=== PATIENT | male | born 1975 | race American Indian/Alaskan Native ===

== ENCOUNTER 2018-09-02 18:56 | Emergency (ER) | payer OTHER ==
[2018-09-02 19:08] VITALS: BP 130/88; PULSE 74; RESP 16; TEMP 98.6; O2SAT 98
[2018-09-02] MEDS ORDERED: Tetracaine 0.5% Ophth (OR ONLY) ONE (19:24)
[2018-09-02] MEDS ORDERED: PROPARACAINE/FLUORESCEIN SOD 100 DROP/5 ML BOTTLE ONE (19:25)
--- NOTE | 2018-09-02 19:52 | C.PDOC ---
History Of Present Illness 42 y/o male was seen last month at [facility] and diagnosed with glaucoma. Patient was given brimonidine and dorzolamide. States he took it for 10 days and symptoms went away. Patient has not followed up since. Today, patient states he woke up with right eye pain and redness. Denies injury, discharge, wearing contacts, fever, chills, nausea, vomiting, abdominal pain, nasal congestion, or cough. Time Seen by Provider: 09/02/18 19:06 Chief Complaint (Nursing): Eye Problem History Per: Patient History/Exam Limitations: no limitations Onset/Duration Of Symptoms: Hrs Current Symptoms Are (Timing): Still Present Past Medical History Reviewed: Historical Data, Nursing Documentation, Vital Signs Vital Signs: Last Vital Signs Temp 98.6 F 09/02/18 19:05 Pulse 74 09/02/18 19:05 Resp 16 09/02/18 19:05 BP 130/88 09/02/18 19:05 Pulse Ox 98 09/02/18 19:05 Family History: States: No Known Family Hx - Social History Hx Alcohol Use: No Hx Substance Use: No - Immunization History Hx Tetanus Toxoid Vaccination: No Hx Influenza Vaccination: No Hx Pneumococcal Vaccination: No Review Of Systems Constitutional: Negative for: Fever, Chills, Weakness Eyes: Positive for: Pain (R eye), Redness. Negative for: Other (scleral icterus; discharge) ENT: Negative for: Nose Congestion, Mouth Swelling Cardiovascular: Negative for: Light Headedness Respiratory: Negative for: Cough Gastrointestinal: Negative for: Nausea, Vomiting, Abdominal Pain Genitourinary: Negative for: Dysuria Musculoskeletal: Negative for: Neck Pain Skin: Negative for: Rash Neurological: Negative for: Altered Mental Status Physical Exam - Physical Exam Appears: Non-toxic, No Acute Distress Skin: Warm, Dry, No Rash Head: Atraumatic, Normacephalic Eye(s): bilateral: PERRL, EOMI (with no pain), right: Photophobia, Other (Redness around iris, questionable ciliary flush, IOP 54-55) Nose: Normal Oral Mucosa: Moist Throat: Normal (no swelling), No Exudate Neck: Normal ROM, Supple Chest: Symmetrical Respiratory: No Accessory Muscle Use, Other (Normal inspiratory effort) Gastrointestinal/Abdominal: Soft, No Distention Extremity: Bilateral: Atraumatic, Normal Color And Temperature, Normal ROM Neurological/Psych: Oriented x3, Normal Speech Gait: Steady ED Course And Treatment O2 Sat by Pulse Oximetry: 98 (RA) Pulse Ox Interpretation: Normal Medical Decision Making Medical Decision Making: this patient is not in severe pain depsite the tonopen reading of 54/55. Dr. Batres consulted and he does not believe this pressure reading is accurate and states this patient can be seen in the office at 930 am after being prescribed ophthamic drops for glaucoma. Disposition Discussed With DrTraci: Stella Thao Counseled Patient/Family Regarding: Diagnosis, Need For Followup - Disposition Disposition: HOME/ ROUTINE Disposition Time: 19:54 Condition: STABLE Additional Instructions: MALKA BEDOLLA, thank you for letting us take care of you today. Your provider was ED Physician Dr. Garcia and DOROTHY Pozo you were treated for EYE PAIN. The emergency medical care you received today was directed at your acute symptoms. If you were prescribed any medication, please fill it and take as directed. It may take several days for your symptoms to resolve. Return to the Emergency Department if your symptoms worsen, do not improve, or if you have any other problems. Please contact your doctor or call one of the physicians/clinics you have been referred to that are listed on the Patient Visit Information form that is included in your discharge packet. Bring any paperwork you were given at discharge with you along with any medications you are taking to your follow up visit. Our treatment cannot replace ongoing medical care by a primary care provider outside of the emergency department. Thank you for allowing the [facility] team to be part of your care today. Prescriptions: RX: Brimonidine 0.2% [Alphagan 0.2% Opht] 2 drop RIGHTEYE BID #1 bottle RX: Dorzolamide 2% [Trusopt] 5 ml RIGHTEYE BID #1 bottle Instructions: Angle-Closure Glaucoma Forms: [employer] (Spanish), General Discharge Instructions - Clinical Impression Clinical Impression: Glaucoma (increased eye pressure) - PA / CONTENT STRATEGIST / Resident Statement MD/DO has reviewed & agrees with the documentation as recorded. - Scribe Statement The provider has reviewed the documentation as recorded by the Scribe Suzanne Perez All medical record entries made by the Scribe were at my direction and personally dictated by me. I have reviewed the chart and agree that the record accurately reflects my personal performance of the history, physical exam, medical decision making, and the department course for this patient. I have also personally directed, reviewed, and agree with the discharge instructions and disposition.
== END 2018-09-02 20:19 | disposition home or self-care (01) ==
LOC: C.ER 18:56
DX: H40.9 Unspecified glaucoma (principal)

== ENCOUNTER 2018-12-24 11:47 | Outpatient (CLI) | payer OTHER | END 2018-12-24 11:48 | disposition home or self-care (01) | LOC: C.PAT 11:47 ==

== ENCOUNTER 2018-12-27 09:52 | Day surgery (SDC) | payer OTHER ==
[2018-12-24 12:07] VITALS: BMI 30.7
[~2018-12-27 09:52] MED LIST: Bupivacaine-Epi 0.5%-1:200,000 PF Inj ONE; ceFAZolin 1 gm in NS 2 GM/200 ML BAG IVPB ONE
[2018-12-27] MEDS ORDERED: Propofol 10 mg/ml Inj (20 ML) ONE (12:00)
[2018-12-27] MEDS ORDERED: Midazolam 2 MG/2 ML VIAL ONE (12:00)
[2018-12-27] MEDS ORDERED: oxyCODONE 5 mg Immediate Release Tab PO ONE (12:58)
--- NOTE | 2018-12-27 13:02 | PCM.SURG1 ---
Surgeon's Initial Post Op Note - Surgeon's Notes Surgeon: Dr. Domingo [employer] Faculty Member: Merchant PARSONS Type of Anesthesia: Local Pre-Operative Diagnosis: Left Upper Extremity mass, Right Testicular hydrocele Operative Findings: Right hydrocele, left upper extremity lipoma Post-Operative Diagnosis: 1. Left upper extremity Lipoma. 2. Right Testicular Hydrocele Operation Performed: 1. Excision of Left Upper extremity Lipoma excision. 2. Right Testicular Hydrocelectomy Specimen/Specimens Removed: 1. Left upper extremity Mass. 2. Testicular sac Estimated Blood Loss: EBL {In ML}: 10 Drains Used: Dawna (Right Testicle) Date of Surgery/Procedure: 12/27/18 Time of Surgery/Procedure: 13:01 (Dictation#: [id number])
[2018-12-27] MEDS ORDERED: Lidocaine/Epinephrine 1% 1:100000 10 ML IJ ONE (13:04)
[2018-12-27] MEDS: HYDROmorphone 0.5 mg/0.5 ml ISec IVP PRN ×2 (13:17→13:32)
[2018-12-27 13:35] VITALS: O2SAT 100
[2018-12-27 14:25] VITALS: BP 113/69; PULSE 70; RESP 18; TEMP 97
--- NOTE | 2018-12-28 00:39 | OP ---
PROCEDURE DATE: 12/27/2018 SURGEON: Indra Domingo MD. PACKAGING ENGINEER: Eliot Dang DO, PGY-2. ANESTHESIA: General LMA. PREOPERATIVE DIAGNOSES: 1. Left upper extremity mass. 2. Right testicular hydrocele. POSTOPERATIVE DIAGNOSES: 1. Left upper extremity lipoma. 2. Right testicular hydrocele. PROCEDURES: 1. Excision of left upper extremity lipoma. 2. Right testicular hydrocelectomy. ESTIMATED BLOOD LOSS: 10 mL. SPECIMENS: 1. Left upper extremity lipoma. 2. Right testicular sac. INDICATIONS FOR SURGERY: This is a 43-year-old male with the history of right testicular swelling and presumed to have a hydrocele which continued to irritate and bother him. Also, he noted a left upper extremity mass at the palmar portion of the forearm at the distal third. Subsequently, he wanted this to be removed due to pain and irritation. DESCRIPTION OF THE PROCEDURE: The patient was brought into the operating room and placed in supine position. The patient's anesthesia was induced and LMA was placed. Placement confirmed with end-tidal CO2 and hooked up on EKG monitors and O2 saturation. The patient was prepped and draped in the usual sterile fashion along the testicles and penis as well as the left upper extremity. A time-out was taken confirming correct patient, procedure, and laterality. Everyone agreed in the room. Starting off with the left upper extremity, a single incision was made directly over the mass using combination of sharp and blunt dissection, mass was elevated and determined to be lipoma. Using Metzenbaum scissors, we were able to completely remove the entirety of the mass. The skin was then approximated in running subcuticular manner with 4-0 Vicryl. Pressure was placed. Appropriate hemostasis was achieved using electrocautery. Dermabond was placed as a sterile dressing. At this time, both scrubbed and redressed and regowned in a sterile fashion for the right testicle as prepped and draped. A single longitudinal incision was made over the right scrotum and dissection was made down to the hydrocele sac. A #10 blade was then used to make a single stab incision to drain the hydrocele. Approximately, 30 mL were drained. At this time, the sac was extended using sharp scissors and then retracted posteriorly exposing the right testicle, using a running chromic suture in a locking manner to close the defect. At this time, a single stab incision was made to place a Dawna drain at the inferior portion of the scrotum. The remainder of the scrotum was then closed with 3-0 chromic in an interrupted fashion in a vertical mattress suture. The Dawna was then secured and placed on the inferior aspect of the scrotum. All hemostasis was appropriately achieved using electrocautery. A pressure dressing was applied. Scrotal support was then placed. The patient was awoken and extubated and taken to postanesthesia care unit in stable condition. All counts were correct at the end of the case. Dr. Domingo was present and participated in all aspects of this case. Eliot Dang DO Indra Domingo MD
== END 2018-12-27 17:42 | disposition home or self-care (01) ==
LOC: C.SDS 09:52
PROVIDERS: ATTEND Surgery
DX: N43.0 Encysted hydrocele (principal); D17.22 Benign lipomatous neoplasm of skin and subcutaneous tissue of left arm
CPT/HCPCS: 11401; 55040; 88302; 88307; J0690; J1170; J2250; J2704; J3010

== ENCOUNTER 2019-01-08 12:31 | Observation (INO) | payer OTHER | END 2019-01-09 19:22 | disposition home or self-care (01) | LOC: C.ER 12:31 → C.9E 15:06 → C.6T 17:23 | DX: L03.114 Cellulitis of left upper limb (principal); L02.414 Cutaneous abscess of left upper limb; H40.9 Unspecified glaucoma; Z98.890 Other specified postprocedural states; N50.89 Other specified disorders of the male genital organs ==